=== PATIENT | male | born 1975 | race Caucasian/White ===

== ENCOUNTER 2018-02-23 23:45 | Inpatient (IN) | payer OTHER ==
[~2018-02-23] VITALS: Ht 175.3 cm; Wt 87.2 kg
--- NOTE | ~2018-02-23 | EKG ---
[place], [place] ELECTROCARDIOGRAM REPORT NAME: KIA GUEVARA UNIT #: [id number] ROOM: 415 DOCTOR: UGO DRAFT REPORT BIRTHDATE: [birth year] [facility] Test Date: 2018-02-24 Test Time: 01:08:30 Pat Name: KIA GUEVARA Department: Room: [facility] Gender: M Lobbyist: : 1975 Requested By: BRAD HANSEN Order Number: [id number] Reading MD: Cornelia Gonzalez MD Measurements Intervals [place] Rate: 94 P: 46 IA: 144 QRS: 32 QRSD: 93 T: 32 QT: 329 QTc: 412 Interpretive Statements Sinus rhythm Baseline wander in lead(s) V3 No previous ECG available for comparison Electronically Signed On 02-26-2018 11:54:13 PST by Cornelia Gonzalez MD CM:EKGRPT:ELECTROCARDIOGRAM REPORT [id number] BRAD DE JESUS DRAFT REPORT BRAD HANSEN DO
[2018-02-23] MEDS ORDERED: CYMBALTA60 MG PO (23:52)
[2018-02-23] MEDS ORDERED: CYCLOBENZAPRINE5 M3 PO (23:53)
[2018-02-23] MEDS ORDERED: MOBIC15 MG PO (23:53)
[2018-02-23] MEDS ORDERED: DELTASONE1 MG PO (23:55)
[2018-02-23] MEDS ORDERED: PRILOSEC20 M1 PO (23:56)
[2018-02-23] MEDS ORDERED: TRAZODONE100 MG PO (23:56)
[2018-02-23] MEDS ORDERED: LISINOPRIL10 M1 PO (23:57)
[2018-02-24] VITALS: BP 135/89
[2018-02-24 00:48] LABS: BILIRUBIN NEGATIVE (NEGATIVE); BLOOD NEGATIVE (NEGATIVE); CLARITY CLEAR (CLEAR); COLOR YELLOW (YELLOW); GLUCOSE NEGATIVE (NEGATIVE); KETONE NEGATIVE (NEGATIVE); LEUKO ESTERASE NEGATIVE (NEGATIVE); NITRITE NEGATIVE (NEGATIVE); SPECIFIC GRAVITY 1.025 (1.005-1.030); UROBILINOGEN 0.2 E.U./dl (0.2-1.0)
[2018-02-24 00:53] LABS: WBC 0-2 wbc/hpf (0-5)
[2018-02-24 00:58] LABS: URINE AMPHETAMINES < 1000 (1000ng/ml); URINE BARBITURATES < 200 (200ng/ml); URINE BENZODIAZEPINES < 200 (200ng/ml); URINE CANNABINOIDS (THC) < 50 (50ng/ml); URINE COCAINE < 300 (300ng/ml); URINE METHADONE < 300 (300ng/ml); URINE OPIATES < 300 (300ng/ml)
[2018-02-24 01:00] LABS: URINE PHENCYCLIDINE < 25 (25ng/ml)
[2018-02-24 01:11] LABS: HEMATOCRIT 45.4 % (42.0-52.0); HEMOGLOBIN 15.5 g/dl (14.0-18.0); MEAN CELL VOLUME 91.5 fl (80.0-94.0); MEAN CORPUSCULAR HGB 31.3 pg (27.0-31.0); MEAN CORPUSCULAR HGB CONC 34.1 g/dl (33.0-37.0); MEAN PLATELET VOLUME 8.5 fl (9.6-12.3); PLATELET COUNT AUTOMATED 331 10*3/uL (130-400); RED BLOOD COUNT 4.96 10*6/uL (4.50-5.90); RED CELL DISTRI WIDTH 12.8 % (0-14.5); WHITE BLOOD COUNT 20.8 10*3/uL (4.8-10.8)
[2018-02-24 01:26] LABS: ALBUMIN 3.5 gm/dl (3.1-4.5); ALKALINE PHOSPHATASE 78 U/L (45-117); BUN 13 mg/dl (7-24); CHLORIDE 106 mmol/L (98-107); POTASSIUM 3.8 mmol/L (3.5-5.1); SGOT/AST 18 IU/L (3-35); SGPT/ALT 27 U/L (12-78); SODIUM 139 mmol/L (136-145)
[2018-02-24 01:29] LABS: PLATELET SUFFICIENCY NORMAL (NORMAL); TOTAL CELLS COUNTED 100 #CELLS
[2018-02-24 01:30] LABS: ACETAMINOPHEN (TYLENOL) < 5.0 ug/ml (10-30); ETHYL ALCOHOL < 3.0 mg/dl (<3)
[2018-02-24 03:07] VITALS: BP 146/88
--- NOTE | 2018-02-24 03:07 | NUR ---
A 42, admitted to , under the services of VANESSA Roblero DO with a diagnosis of desire of detox alcohol abuse. Chief complaint is alcohol abuse. Patient arrived via bed from ER. Monitor applied. Initial assessment completed. Vital signs taken and recorded. VANESSA ROBLERO DO notified of admission to the unit. Orders received. See assessment for past medical history, medications and allergies. Patient and/or family oriented to unit. [facility] visitation policy reviewed. Clothing/patient valuable form completed. Pt. arrived to the unit teary eyed. Pt stated last drink was 02/23/18 at 1200. Pt drinks a couple shots of liquor and 6-12 12-16 oz cans per day. Patient is calm and cooperative. Pt stated he believes that alcohol is the cause of all his problems. MARCELLE COLVIN
[2018-02-24] MEDS ORDERED: PREDNISONE20 M1 PO (03:23)
[2018-02-24] MEDS ORDERED: FLONASE ALLERG9.9 ML NAS (03:24)
[2018-02-24] MEDS ORDERED: CEFDINIR300 MG PO (03:27)
--- NOTE | 2018-02-24 05:25 | NUR ---
NOTIFIED DR. LYNN AND NOTIFIED HIM THAT PT. HOME MEDS ARE RECONCILLED.
[2018-02-24 08:00] VITALS: BP 137/95
[2018-02-24 12:00] VITALS: BP 136/90
[2018-02-24 16:00] VITALS: BP 148/88
[2018-02-24 20:00] VITALS: BP 137/89
--- NOTE | 2018-02-24 23:25 | NUR ---
ASSUME CARE OF PATIENT. RESPIRATIONS EASY/REG ON RA. NO VOICED COMPLAINTS AT THIS TIME. BED IN LOW POSITION. WHEELS LOCKED, CALL LIGHT IN REACH.
[2018-02-25] VITALS: BP 141/86
--- NOTE | 2018-02-25 03:03 | NUR ---
PATIENT SLEEPING. NO S/S OF DISTRESS NOTED. RESPIRATIONS EASY/REG. CALL LIGHT IN REACH
--- NOTE | 2018-02-25 05:20 | NUR ---
SLEEPING. EASILY AROUSABLE FOR AM MEDICATIONS. NO VOICED COMPLAINTS FROM PATIENT AT THIS TIME. OFFERED PRN MEDICATIONS, DENIES NEED FOR THEM. WILL CONTINUE TO MONITOR.
[2018-02-25 07:08] LABS: BASO % 0.2 % (0.0-1.0); EOS # 0.1 10*3/uL (0.0-0.4); EOS % 0.4 % (1.0-4.0); HEMATOCRIT 44.6 % (42.0-52.0); HEMOGLOBIN 14.9 g/dl (14.0-18.0); LYMPH # 2.1 10*3/uL (1.3-4.4); LYMPH % 13.1 % (27.0-41.0); MEAN CELL VOLUME 90.7 fl (80.0-94.0); MEAN CORPUSCULAR HGB 30.3 pg (27.0-31.0); MEAN CORPUSCULAR HGB CONC 33.4 g/dl (33.0-37.0); MEAN PLATELET VOLUME 8.8 fl (9.6-12.3); MONO % 6.3 % (3.0-9.0); NEUT # 12.9 10*3/uL (2.3-7.9); NEUT % 79.6 % (47.0-73.0); PLATELET COUNT AUTOMATED 344 10*3/uL (130-400); RED BLOOD COUNT 4.92 10*6/uL (4.50-5.90); RED CELL DISTRI WIDTH 12.4 % (0-14.5); WHITE BLOOD COUNT 16.2 10*3/uL (4.8-10.8)
[2018-02-25 07:41] LABS: BUN 12 mg/dl (7-24); CHLORIDE 107 mmol/L (98-107); CREATININE 0.58 mg/dL (0.70-1.30); POTASSIUM 3.7 mmol/L (3.5-5.1); SODIUM 141 mmol/L (136-145)
[2018-02-25 08:00] VITALS: BP 130/82
--- NOTE | 2018-02-25 11:57 | NUR ---
PATIENT MEETS [facility]. PATIENT WANTS TO GO TO [facility] FOR INPATIENT TREATMENT FOR HIS AFTERCARE PLAN. [facility] STAFF SENT PATIENT'S ASSESSMENT TO FACILITY AND IS WAITING FOR BED AVAILABILITY. JOSE A GOODSON B.A. REGIONAL SALES ENGINEER
[2018-02-25 12:00] VITALS: BP 133/90
[2018-02-25 16:00] VITALS: BP 123/84
--- NOTE | 2018-02-25 16:09 | NUR ---
ME STAFF SPOKE WITH [facility] AND THEY HAVE A BED AVAILABLE FOR HIM ON SUNDAY, February. PATIENT STATED THAT HE WILL HAVE TRANSPORTATION. PATIENT AGREES AND UNDERSTANDS HIS AFTERCARE PLAN. JOSE A GOODSON B.A. PIPELINE TECHNICIAN
[2018-02-25 20:00] VITALS: BP 142/86
--- NOTE | 2018-02-25 20:30 | NUR ---
PT. C/O BEING UNABLE TO ELEVATE THE BED DOWN AT HIS FEET. NEW BED BROUGHT INTO ROOM & OTHER BED TAKEN TO BE FIXED. PT. ALSO C/O BEING DIZZY; INFORMED PATIENT THAT I WOULD CALL THE DOCTOR. PT. STATES THAT HE TAKES ANTIVERT AT HOME. PT. ALSO WANTS TO TAKE A SHOWER BUT THIS RN INFORMED PATIENT THAT DUE TO HIM C/O BEING DIZZY THAT IT WOULD BE BETTER FOR HIM TO WAIT. PT. VERBALIZED UNDERSTANDING. ALSO ASKING FOR BOX LUNCH.
--- NOTE | 2018-02-25 23:07 | NUR ---
MEDICATED WITH ANTIVERT FOR C/O DIZZINESS & PER M.D. ORDERS.
[2018-02-26] VITALS: BP 126/64
--- NOTE | 2018-02-26 02:00 | NUR ---
RESTING IN BED WITH EYES CLOSED. MEDICATION GIVEN EARLIER APPARENTLY EFFECTIVE.
[2018-02-26 06:47] LABS: BASO % 0.1 % (0.0-1.0); EOS % 0.1 % (1.0-4.0); HEMATOCRIT 43.6 % (42.0-52.0); HEMOGLOBIN 14.5 g/dl (14.0-18.0); LYMPH # 1.8 10*3/uL (1.3-4.4); MEAN CORPUSCULAR HGB 30.3 pg (27.0-31.0); MEAN CORPUSCULAR HGB CONC 33.3 g/dl (33.0-37.0); MEAN PLATELET VOLUME 8.8 fl (9.6-12.3); MONO # 1.1 10*3/uL (0.1-1.0); MONO % 6.6 % (3.0-9.0); NEUT # 13.6 10*3/uL (2.3-7.9); NEUT % 81.7 % (47.0-73.0); PLATELET COUNT AUTOMATED 323 10*3/uL (130-400); RED BLOOD COUNT 4.79 10*6/uL (4.50-5.90); RED CELL DISTRI WIDTH 12.4 % (0-14.5); WHITE BLOOD COUNT 16.6 10*3/uL (4.8-10.8)
[2018-02-26 07:23] LABS: CREATININE 0.57 mg/dL (0.70-1.30)
[2018-02-26 08:00] VITALS: BP 128/88
[2018-02-26 12:00] VITALS: BP 115/68
[2018-02-26 16:00] VITALS: BP 121/78
[2018-02-26 20:00] VITALS: BP 134/85
[2018-02-27] VITALS: BP 142/85
[2018-02-27 06:22] LABS: BASO # 0.1 10*3/uL (0.0-0.1); BASO % 0.3 % (0.0-1.0); EOS # 0.1 10*3/uL (0.0-0.4); EOS % 0.3 % (1.0-4.0); HEMATOCRIT 43.4 % (42.0-52.0); HEMOGLOBIN 14.9 g/dl (14.0-18.0); LYMPH # 2.5 10*3/uL (1.3-4.4); LYMPH % 13.2 % (27.0-41.0); MEAN CELL VOLUME 90.4 fl (80.0-94.0); MEAN CORPUSCULAR HGB CONC 34.3 g/dl (33.0-37.0); MEAN PLATELET VOLUME 8.8 fl (9.6-12.3); MONO # 1.3 10*3/uL (0.1-1.0); MONO % 6.5 % (3.0-9.0); NEUT # 15.3 10*3/uL (2.3-7.9); NEUT % 79.1 % (47.0-73.0); PLATELET COUNT AUTOMATED 328 10*3/uL (130-400); RED CELL DISTRI WIDTH 12.5 % (0-14.5); WHITE BLOOD COUNT 19.3 10*3/uL (4.8-10.8)
[2018-02-27 06:46] LABS: BUN 15 mg/dl (7-24); CHLORIDE 106 mmol/L (98-107); CREATININE 0.59 mg/dL (0.70-1.30); POTASSIUM 3.8 mmol/L (3.5-5.1); SODIUM 141 mmol/L (136-145)
[2018-02-27 08:00] VITALS: BP 91/53
--- NOTE | 2018-02-27 12:01 | NUR ---
PT DISCHARGED AT THIS TIME. IV REMOVED AND PRESSURE DRESSING APPLIED. VERBALIZED UNDERSTANDING OF DISCHARGE INSTRUCTIONS.
== END 2018-02-27 12:14 | disposition home or self-care (01) | DRG 897 ==
LOC: ED 23:45 → EDHOLD 02-24 02:09 → 4E 02-24 02:20
PROVIDERS: Emergency Medicine; Family Medicine; Internal Medicine; Student in an Organized Health Care Education/Training Program; ADMIT Internal Medicine
DX: F10.10 Alcohol abuse, uncomplicated (principal); R65.10 Systemic inflammatory response syndrome (SIRS) of non-infectious origin without acute organ dysfunction; F41.9 Anxiety disorder, unspecified; D72.829 Elevated white blood cell count, unspecified; I10 Essential (primary) hypertension; K21.9 Gastro-esophageal reflux disease without esophagitis; G47.00 Insomnia, unspecified; F17.200 Nicotine dependence, unspecified, uncomplicated; Z71.6 Tobacco abuse counseling; Z82.49 Family history of ischemic heart disease and other diseases of the circulatory system